=== PATIENT | male | born 1965 | race Caucasian/White ===

== ENCOUNTER 2017-10-02 21:40 | Emergency (ER) | payer OTHER ==
[2017-10-02 22:28] VITALS: BP 146/95; PULSE 73; TEMP 97.5; O2SAT 97
[2017-10-02] MEDS ORDERED: Bacitracin 500 Units/gm Oint Foilpak UD TOP ONE (23:27)
[2017-10-02] MEDS ORDERED: Oxycodone/Acetaminophen 5/325 mg Tab PO STA (23:28)
--- NOTE | 2017-10-02 23:29 | C.PDOC ---
History Of Present Illness 52 y/o male presents to the ER complaining of a right thumb injury, sustained a few hours ago. States he slammed the thumb in trunk. Patient reports pain to the thumb but no numbness, tingling, or weakness. Tetanus is not up to date. Time Seen by Provider: 10/02/17 23:21 Chief Complaint (Nursing): Abnormal Skin Integrity History Per: Patient History/Exam Limitations: no limitations Onset/Duration Of Symptoms: Hrs Current Symptoms Are (Timing): Still Present Quality Of Symptoms: Painful Past Medical History Reviewed: Historical Data, Nursing Documentation, Vital Signs Vital Signs: Last Vital Signs Temp 97.5 F L 10/02/17 22:27 Pulse 73 10/02/17 22:27 Resp 20 10/03/17 01:19 BP 146/95 H 10/02/17 22:27 Pulse Ox 97 10/03/17 01:14 Family History: States: No Known Family Hx - Social History Hx Alcohol Use: No Hx Substance Use: No Review Of Systems Musculoskeletal: Positive for: Hand Pain (right thumb) Neurological: Negative for: Weakness, Numbness Physical Exam - Physical Exam Appears: Non-toxic, No Acute Distress Extremity: Normal ROM (with full ROM of thumb), Deformity (Possible chip fracture noted), Other (Right thumb exquisitely tender, soft, (+) skin tears around the nail bed with blood under nail blood approximately 1/4 of nail) Pulses: Left Radial: Normal, Right Radial: Normal Neurological/Psych: Other (Alert, no focal deficits) ED Course And Treatment O2 Sat by Pulse Oximetry: 97 Medical Decision Making Medical Decision Making: Finger irrigated, tdap and analgesics given. bacitracin applied. questionable small chip fx, antibiotics given, will d/c home with keflex and hand follow up. Referral provided. Disposition Counseled Patient/Family Regarding: Studies Performed, Diagnosis, Need For Followup, Rx Given - Disposition Referrals: Porter Price MD [Staff Provider] - Disposition: HOME/ ROUTINE Disposition Time: 01:10 Condition: IMPROVED Additional Instructions: Keep finger clean and dry. Change bandage every day, wash with soap and water, pat dry. then re-apply bacitracin. Follow up with Dr Price in a few days,. Take antibiotics as prescribed. Ibupforen for pain. Tylenol#3 for severe pain. Return to ER for any signs of infection such as redness, swelling. pus from wound. . Prescriptions: Acetaminophen with Codeine [Tylenol with Codeine #3 Tablet] 1 each PO Q6 #8 tablet Cephalexin [Keflex] 500 mg PO Q6 #28 capsule Ibuprofen [Motrin] 600 mg PO TID #30 tab Instructions: Crush Injury (ED) Forms: [facility] (Armenian), General Discharge Instructions - Clinical Impression Clinical Impression: Crushing injury of thumb, right - PA / RESOLUTE PROFESSIONAL / Resident Statement MD/DO has reviewed & agrees with the documentation as recorded. - Scribe Statement The provider has reviewed the documentation as recorded by the Scribe (Gaby Hamlin) All medical record entries made by the Scribe were at my direction and personally dictated by me. I have reviewed the chart and agree that the record accurately reflects my personal performance of the history, physical exam, medical decision making, and the department course for this patient. I have also personally directed, reviewed, and agree with the discharge instructions and disposition.
[2017-10-02] MEDS ORDERED: Bacitracin 500 Units/gm Oint Foilpak UD ONE (23:36)
[2017-10-02] MEDS ORDERED: Oxycodone/Acetaminophen 5/325 mg Tab ONE (23:36)
[2017-10-03] MEDS ORDERED: Bacitracin 500 Units/gm Oint Foilpak UD TOP ONE (00:54)
[2017-10-03 01:19] VITALS: RESP 20
--- NOTE | 2017-10-03 09:56 | RAD ---
PROCEDURE: Right Thumb radiographs. HISTORY: slammed in door COMPARISON: None. TECHNIQUE: AP radiograph of the right hand, as well as spot oblique and lateral images of thumb were obtained. FINDINGS: RIGHT THUMB: Unremarkable right 1st digit without acute displaced fracture identified. Remainder of the right hand (as seen on the AP view) grossly unremarkable. Well corticated ossific density just distal to the fibula may reflect remote injury or ossicle. JOINTS: No dislocation. SOFT TISSUES: Soft tissue swelling. No evidence of radiopaque foreign body. OTHER FINDINGS: None. IMPRESSION: Soft tissue swelling. No acute displaced fracture or dislocation identified.
== END 2017-10-03 01:19 | disposition home or self-care (01) ==
LOC: C.ER 21:40
DX: S67.01XA Crushing injury of right thumb, initial encounter (principal); W22.8XXA Striking against or struck by other objects, initial encounter